=== PATIENT | female | born 1995 | race Caucasian/White ===

== ENCOUNTER 2016-07-22 10:45 | Emergency (ER) | payer OTHER ==
[~2016-07-22] VITALS: Ht 180.3 cm; Wt 76.0 kg
[2016-07-22 10:54] VITALS: BP 121/74
[2016-07-22] MEDS ORDERED: KEFLEX500 MG PO (12:53)
== END 2016-07-22 13:02 | disposition home or self-care (01) ==
LOC: EME 10:45
DX: L02.511 Cutaneous abscess of right hand (principal); S61.214A Laceration without foreign body of right ring finger without damage to nail, initial encounter; F17.200 Nicotine dependence, unspecified, uncomplicated
CPT/HCPCS: 73140; 99281; 99283; S0020